=== PATIENT | male | born 1965 | race Caucasian/White ===

== ENCOUNTER 2019-11-05 13:22 | Emergency (ER) | payer MEDICAID ==
[~2019-11-05] VITALS: Ht 175.3 cm; Wt 89.8 kg
[2019-11-05 13:30] VITALS: Ht 175.3 cm; Wt 89.8 kg
[2019-11-05 14:28] VITALS: BP 163/100
== END 2019-11-05 15:35 | disposition home or self-care (01) ==
LOC: ED 13:22
DX: J40 Bronchitis, not specified as acute or chronic (principal); R51 Headache; F17.210 Nicotine dependence, cigarettes, uncomplicated; I10 Essential (primary) hypertension; Z98.890 Other specified postprocedural states
CPT/HCPCS: 99406; J1885; J3490; J7512

== ENCOUNTER 2019-12-01 09:25 | Emergency (ER) | payer MEDICAID ==
[~2019-12-01] VITALS: Ht 175.3 cm; Wt 124.7 kg
[2019-12-01 09:55] VITALS: Ht 175.3 cm; Wt 124.7 kg
[2019-12-01] MEDS ORDERED: LOPRESSOR50 M1 PO (11:41)
[2019-12-01] MEDS ORDERED: LISINOPRIL-HYDR1 TA4 PO (11:42)
[2019-12-01 13:31] VITALS: BP 147/95
== END 2019-12-01 13:31 | disposition home or self-care (01) ==
LOC: ED 09:25
DX: J18.9 Pneumonia, unspecified organism (principal); I10 Essential (primary) hypertension; F17.210 Nicotine dependence, cigarettes, uncomplicated; Z98.890 Other specified postprocedural states; Z76.0 Encounter for issue of repeat prescription
CPT/HCPCS: 87804; J0696; Q0092

== ENCOUNTER 2019-12-05 07:20 | Inpatient (IN) | payer MEDICAID ==
[~2019-12-05] VITALS: Ht 175.3 cm; Wt 87.6 kg
[~2019-12-05 07:20] MED LIST: LISINOPRIL-HYDR1 TA4 PO; LOPRESSOR50 M1 PO
[2019-12-05 07:35] VITALS: Ht 175.3 cm; Wt 87.6 kg
[2019-12-05 08:20] LABS: BASOPHIL % 0.3 % (0-2); PLATELET COUNT 231 x10^3mcL (130-400); RED CELL DISTRIBUTION WIDTH 13.4 % (11.5-14.5)
[2019-12-05 08:29] LABS: CHLORIDE SERUM 100 mmol/L (98-107); CREATININE SERUM 1.2 mg/dL (0.7-1.3); GFR1 > 60 mL/min; GLUCOSE SERUM 112 mg/dL (74-106); POTASSIUM SERUM 3.8 mmol/L (3.5-5.1); SODIUM SERUM 136 mmol/L (136-145)
[2019-12-05 08:48] LABS: ALKALINE PHOSPHATASE 133 U/L (46-116); ALT/SGPT 55 U/L (16-63); AST/SGOT 36 U/L (15-37); BILIRUBIN TOTAL 0.4 mg/dL (0.20-1.00); TOTAL PROTEIN, SERUM 7.8 g/dL (6.4-8.2)
[2019-12-05 08:49] LABS: ALBUMIN 2.8 g/dL (3.4-5.0)
[2019-12-05 10:41] VITALS: BP 155/99
[2019-12-05 15:45] VITALS: BP 150/97
[2019-12-05 21:00] VITALS: BP 145/88
[2019-12-05] MEDS ORDERED: LIPITOR10 MG PO (21:55)
[2019-12-05] MEDS ORDERED: ZITHROMAX Z-PA250 MG PO (21:56)
[2019-12-05] MEDS ORDERED: ZITHROMAX250 MG PO (21:57)
[2019-12-05 22:55] LABS: microscopic required? NO
[2019-12-05 23:08] LABS: urine erythrocyte NEGATIVE (NEGATIVE)
[2019-12-06 04:48] VITALS: BP 131/88
[2019-12-06 06:35] LABS: BASOPHIL % 0.4 % (0-2); PLATELET COUNT 216 x10^3mcL (130-400); RED CELL DISTRIBUTION WIDTH 13.5 % (11.5-14.5)
[2019-12-06 06:57] LABS: CALCIUM 8.5 mg/dL (8.5-10.1); CARBON DIOXIDE 32.6 mmol/L (21-32); CHLORIDE SERUM 102 mmol/L (98-107); CREATININE SERUM 1.2 mg/dL (0.7-1.3); GFR1 > 60 mL/min; GLUCOSE SERUM 121 mg/dL (74-106); SODIUM SERUM 138 mmol/L (136-145)
[2019-12-06 08:09] VITALS: BP 153/99
[2019-12-06] MEDS ORDERED: CLEOCIN HCL150 MG PO (09:54)
[2019-12-06 10:59] VITALS: BP 153/99
== END 2019-12-06 11:33 | disposition home or self-care (01) | DRG 383 ==
LOC: ED 07:20 → MU 09:14
PROVIDERS: Emergency Medicine; ADMIT Family Medicine
DX: L03.115 Cellulitis of right lower limb (principal); N17.0 Acute kidney failure with tubular necrosis; E44.0 Moderate protein-calorie malnutrition; F17.210 Nicotine dependence, cigarettes, uncomplicated; I10 Essential (primary) hypertension; E78.5 Hyperlipidemia, unspecified; K59.00 Constipation, unspecified; Z79.899 Other long term (current) drug therapy; Z68.27 Body mass index [BMI] 27.0-27.9, adult
CPT/HCPCS: C9113; G0378; J2543; J3370; J7030; J7050; Q0092

== ENCOUNTER 2020-02-06 21:31 | Inpatient (IN) | payer SELFPAY ==
[~2020-02-06] VITALS: Ht 177.8 cm; Wt 93.2 kg
[~2020-02-06 21:31] MED LIST changes: +CLEOCIN HCL150 MG PO; +LIPITOR10 MG PO; +ZITHROMAX Z-PA250 MG PO; +ZITHROMAX250 MG PO
[2020-02-06 21:51] VITALS: Ht 177.8 cm; Wt 93.2 kg
[2020-02-06 22:51] LABS: BASOPHIL % 0.4 % (0-2); PLATELET COUNT 210 x10^3mcL (130-400); RED CELL DISTRIBUTION WIDTH 14.9 % (11.5-14.5)
[2020-02-06 23:00] LABS: CALCIUM 8.1 mg/dL (8.5-10.1); CARBON DIOXIDE 29.3 mmol/L (21-32); CREATININE SERUM 1.4 mg/dL (0.7-1.3); POTASSIUM SERUM 3.6 mmol/L (3.5-5.1)
[2020-02-06 23:04] LABS: BILIRUBIN TOTAL 0.6 mg/dL (0.20-1.00); TOTAL PROTEIN, SERUM 6.5 g/dL (6.4-8.2)
[2020-02-06 23:05] LABS: ALBUMIN 2.9 g/dL (3.4-5.0); C REACTIVE PROTEIN 17.2 mg/dL (<=0.9)
[2020-02-06 23:33] LABS: ERYTHROCYTE SED RATE 24 mm/hr (0-20)
[2020-02-07 00:29] LABS: UA SPECIFIC GRAVITY 1.025 (1.005-1.035); microscopic required? YES; urine erythrocyte NEGATIVE (NEGATIVE)
[2020-02-07 00:53] LABS: AMPHETAMINE QUAL UR POSITIVE (See below)
[2020-02-07 01:19] VITALS: BP 152/97
[2020-02-07 05:38] VITALS: BP 143/90
[2020-02-07 06:45] LABS: BASOPHIL % 0.1 % (0-2); PLATELET COUNT 183 x10^3mcL (130-400)
[2020-02-07 06:59] LABS: CALCIUM 8.3 mg/dL (8.5-10.1); CARBON DIOXIDE 27.4 mmol/L (21-32); CHLORIDE SERUM 102 mmol/L (98-107); CREATININE SERUM 1.1 mg/dL (0.7-1.3); GFR1 > 60 mL/min; GLUCOSE SERUM 95 mg/dL (74-106); MAGNESIUM 1.9 mg/dL (1.8-2.4); PHOSPHOROUS 2.5 mg/dL (2.5-4.9); POTASSIUM SERUM 3.3 mmol/L (3.5-5.1); SODIUM SERUM 139 mmol/L (136-145)
[2020-02-07 07:23] LABS: RED CELL DISTRIBUTION WIDTH 15.2 % (11.5-14.5)
[2020-02-07 08:26] VITALS: BP 141/93
[2020-02-07 13:02] VITALS: BP 152/96
[2020-02-07 17:10] VITALS: BP 155/95
[2020-02-07 20:11] VITALS: BP 148/96
[2020-02-08 05:13] VITALS: BP 134/85
[2020-02-08 06:51] LABS: CALCIUM 8.7 mg/dL (8.5-10.1); CARBON DIOXIDE 30.5 mmol/L (21-32); CHLORIDE SERUM 103 mmol/L (98-107); CREATININE SERUM 1.1 mg/dL (0.7-1.3); GFR1 > 60 mL/min; GLUCOSE SERUM 97 mg/dL (74-106); MAGNESIUM 2.2 mg/dL (1.8-2.4); PHOSPHOROUS 2.6 mg/dL (2.5-4.9); POTASSIUM SERUM 3.9 mmol/L (3.5-5.1); SODIUM SERUM 138 mmol/L (136-145)
[2020-02-08 07:14] LABS: BASOPHIL % 0.5 % (0-2); PLATELET COUNT 198 x10^3mcL (130-400); RED CELL DISTRIBUTION WIDTH 13.8 % (11.5-14.5)
[2020-02-08 09:15] VITALS: BP 152/93
[2020-02-08 16:21] VITALS: BP 156/69
[2020-02-08 20:49] VITALS: BP 127/88
[2020-02-09 05:10] VITALS: BP 131/60
[2020-02-09 07:06] LABS: BASOPHIL % 0.7 % (0-2); PLATELET COUNT 197 x10^3mcL (130-400); RED CELL DISTRIBUTION WIDTH 14.3 % (11.5-14.5)
[2020-02-09 07:13] LABS: CALCIUM 8.6 mg/dL (8.5-10.1); CARBON DIOXIDE 27.1 mmol/L (21-32); CHLORIDE SERUM 103 mmol/L (98-107); CREATININE SERUM 1.1 mg/dL (0.7-1.3); GFR1 > 60 mL/min; GLUCOSE SERUM 91 mg/dL (74-106); MAGNESIUM 2.1 mg/dL (1.8-2.4); SODIUM SERUM 138 mmol/L (136-145)
[2020-02-09 08:15] VITALS: BP 131/94
[2020-02-09] MEDS ORDERED: CLEOCIN HCL300 MG PO (10:30)
[2020-02-09 11:36] VITALS: BP 145/96
== END 2020-02-09 14:25 | disposition home or self-care (01) | DRG 602 ==
LOC: ED 21:31 → MU 23:26 → DU 02-09 05:09
PROVIDERS: Emergency Medicine; ADMIT Student in an Organized Health Care Education/Training Program
DX: L03.115 Cellulitis of right lower limb (principal); N17.0 Acute kidney failure with tubular necrosis; I10 Essential (primary) hypertension; E78.00 Pure hypercholesterolemia, unspecified; E78.5 Hyperlipidemia, unspecified; F17.210 Nicotine dependence, cigarettes, uncomplicated; F15.10 Other stimulant abuse, uncomplicated
CPT/HCPCS: G0378; J1644; J2543; J3370; J3490; J7030; J7050; Q0092